=== PATIENT | female | born 1955 | race Caucasian/White ===

== ENCOUNTER 2016-08-10 15:25 | Emergency (ER) | payer OTHER ==
[2016-08-10 15:40] VITALS: BP 121/86; RESP 20; TEMP 97
[2016-08-10] MEDS ORDERED: IPRATROPIUM-ALBUTEROL 3 ML NEB INHALATION STA (16:21)
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
[2016-08-10 16:54] VITALS: PULSE 88
[2016-08-10] MEDS ORDERED: HYDROcodone/APAP 10-325MG 1 EACH TAB PO ONE (17:08)
--- NOTE | 2016-08-10 17:25 | XR ---
EXAMINATION TYPE: XR chest 2V DATE OF EXAM: 08/10/2016 5:17 PM COMPARISON: 04/06/2015 HISTORY: Short of breath and cough TECHNIQUE: Frontal and lateral views of the chest are obtained. FINDINGS: Heart and mediastinum are normal. Lungs are clear of consolidation. There are no hilar mas ses. There is no pleural effusion. There is possible faint 5 mm nodule over the right upper lobe on t he frontal view. Bony thorax is intact. IMPRESSION: Possible small right upper lobe nodule without change compared to last exam. Normal hear t.
--- NOTE | 2016-08-10 17:26 | XR ---
EXAMINATION TYPE: XR Hip Complete LT DATE OF EXAM: 08/10/2016 5:17 PM COMPARISON: 12/30/2013 HISTORY: Hip pain TECHNIQUE: 2 views FINDINGS: There is a left hip prosthesis. Components appear in anatomic position. I see no fracture. IMPRESSION: Left hip prosthesis without evidence of a fracture. Prosthesis is new compared to old geetaa cecilio
== END 2016-08-10 17:56 | disposition home or self-care (01) ==
LOC: EC 15:25
DX: J44.0 Chronic obstructive pulmonary disease with (acute) lower respiratory infection (principal); J20.9 Acute bronchitis, unspecified; M25.552 Pain in left hip; K21.9 Gastro-esophageal reflux disease without esophagitis; E78.5 Hyperlipidemia, unspecified; I10 Essential (primary) hypertension; E03.9 Hypothyroidism, unspecified; F41.9 Anxiety disorder, unspecified; F31.9 Bipolar disorder, unspecified; F17.200 Nicotine dependence, unspecified, uncomplicated; Z79.82 Long term (current) use of aspirin; Z79.52 Long term (current) use of systemic steroids; Z79.899 Other long term (current) drug therapy; Z88.5 Allergy status to narcotic agent; Z88.0 Allergy status to penicillin; Z88.7 Allergy status to serum and vaccine; Z88.8 Allergy status to other drugs, medicaments and biological substances
CPT/HCPCS: 71020; 73502; 94640; 99283

== ENCOUNTER → 2016-08-21 | Outpatient (CLI) | payer OTHER ==
--- NOTE | 2016-08-22 14:21 | PE ---
EXAMINATION TYPE: PET CT fusion skull to thigh DATE OF EXAM: 08/21/2016 2:22 PM COMPARISON: CT chest 06/03/2015, CT chest 05/23/2014. Prior PET/CT: None at this location. HISTORY: Solitary pulmonary nodule TECHNIQUE: Following the intravenous administration of 11.16 mCi of F-18 FDG, whole body images are performed from the skull base to the midthigh. Images are reviewed on the computer in the coronal, a xial, and sagittal planes. Reconstructed rotating images are created on independent workstation and reviewed on the computer. A localization and attenuation correction CT is performed in conjunction with the PET scan. DLP: 296.71 mGycm SCAN: Initial Scan Blood glucose: 95 mg/dL Average Mediastinum SUV: 1.7 Average Liver SUV: 2.4 FINDINGS: NECK: No abnormal uptake THORAX: No suspicious uptake. No uptake within the mediastinum is evident. The mid right lung nodule has an SUV value of 0.6 compatible with a benign process. Additional more medial lung nodule likewise has an SUV value of 0.6 and is stable from prior exams. ABDOMEN: No abnormal uptake PELVIS: No abnormal uptake. OSSEOUS STRUCTURES: There is limitation in the lower pelvis due to bilateral hip prostheses. Postsurg ical uptake may be adjacent to the left hip prosthesis. Loosening is not excluded. LOCALIZATION CT: There is a 1.0 cm nodule within the right perihilar region. Series 3 image 79, PET i mage 79. Compression deformity of L2 appears to be chronic. COMPARISON: Solitary pulmonary nodule in the right midlung is present since May 2014 unchanged. IMPRESSION: 1. Stable pulmonary nodules without abnormal uptake on PET scan imaging. These have stable over the c ourse of 2 years.
== END | disposition home or self-care (01) ==
LOC: RADPETMAIN 11:38
PROVIDERS: ATTEND Internal Medicine Sleep Medicine
DX: R91.8 Other nonspecific abnormal finding of lung field (principal)
CPT/HCPCS: 78815; A9552

== ENCOUNTER 2016-10-05 10:54 | Emergency (ER) | payer OTHER ==
[2016-10-05 11:05] VITALS: BP 124/62; PULSE 93; RESP 16; TEMP 98
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
== END 2016-10-05 11:53 | disposition home or self-care (01) ==
LOC: EC 10:54
DX: Z76.0 Encounter for issue of repeat prescription (principal); I10 Essential (primary) hypertension; J44.9 Chronic obstructive pulmonary disease, unspecified; F41.9 Anxiety disorder, unspecified; E03.9 Hypothyroidism, unspecified; F31.9 Bipolar disorder, unspecified; F17.200 Nicotine dependence, unspecified, uncomplicated; Z88.5 Allergy status to narcotic agent; Z88.7 Allergy status to serum and vaccine; Z88.0 Allergy status to penicillin; Z91.048 Other nonmedicinal substance allergy status; Z79.51 Long term (current) use of inhaled steroids; Z79.82 Long term (current) use of aspirin; Z79.899 Other long term (current) drug therapy
CPT/HCPCS: 99281

== ENCOUNTER 2016-11-26 01:57 | Emergency (ER) | payer OTHER ==
[2016-11-26] MEDS ORDERED: HYDROcodone/APAP 5-325MG 1 EACH TAB PO STA (02:16)
[2016-11-26] MEDS ORDERED: KETOROLAC 60 MG/2 ML VIAL IM STA (02:16)
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
[2016-11-26 03:07] VITALS: BP 126/76; PULSE 85; RESP 16; TEMP 97.8
--- NOTE | 2016-11-26 03:14 | XR ---
EXAM: XR Chest, 1 View CLINICAL HISTORY: Reason: Difficulty breathing TECHNIQUE: Frontal view of the chest. COMPARISON: 08/10/16 FINDINGS: Lungs: There is again a subtle nodule seen overlying the upper to mid right lung field on the frontal view, that appears unchanged and which I measure at 8mm on both the current and previous radiographs. No new or enlarging infiltrate. Pleural space: Unremarkable. No pneumothorax. Heart: Unremarkable. No cardiomegaly. Mediastinum: Unremarkable. Bones/joints: Degenerative changes without acute displaced fracture. IMPRESSION: 1. No new acute intrathoracic abnormality is seen. 2. Stable appearance of indeterminate subcentimeter right lung nodule, as above.
== END 2016-11-26 03:07 | disposition home or self-care (01) ==
LOC: EC 01:57
DX: S20.219A Contusion of unspecified front wall of thorax, initial encounter (principal); I10 Essential (primary) hypertension; G89.29 Other chronic pain; E03.9 Hypothyroidism, unspecified; J44.9 Chronic obstructive pulmonary disease, unspecified; F31.9 Bipolar disorder, unspecified; F41.9 Anxiety disorder, unspecified; F17.200 Nicotine dependence, unspecified, uncomplicated; Z79.51 Long term (current) use of inhaled steroids; Z79.82 Long term (current) use of aspirin; Z79.899 Other long term (current) drug therapy; Z88.0 Allergy status to penicillin; Z88.5 Allergy status to narcotic agent; Z88.7 Allergy status to serum and vaccine; Z91.09 Other allergy status, other than to drugs and biological substances; X50.1XXA Overexertion from prolonged static or awkward postures, initial encounter; Y92.810 Car as the place of occurrence of the external cause; Y93.89 Activity, other specified
CPT/HCPCS: 99284; 96372; 71020; J1885

== ENCOUNTER → 2017-03-09 | Outpatient (CLI) | payer OTHER ==
[2017-03-09 17:46] LABS: Anisocytosis Slight; CH 31.8; CHCM 34.5; HCT 41.2 % (34.0-46.0); HDW 2.29; HGB 13.8 gm/dL (11.4-16.0); MCHC 33.5 g/dL (31.0-37.0); MCV 92.7 fL (80.0-100.0); Mean Platelet Volume 10.3; RBC 4.44 m/uL (3.80-5.40); WBC 9.3 k/uL (3.8-10.6)
[2017-03-09 17:56] LABS: INR 1.1 (<1.2); Partial Thromboplastin Time 26.3 sec (22.0-30.0); Prothrombin Time 10.6 sec (9.0-12.0)
[2017-03-09 18:08] LABS: ALT 36 U/L (9-52); AST 27 U/L (14-36); Alkaline Phosphatase 86 U/L (38-126); Anion Gap 10 mmol/L; Blood Urea Nitrogen 14 mg/dL (7-17); Calcium 9.3 mg/dL (8.4-10.2); Carbon Dioxide 25 mmol/L (22-30); Chloride 101 mmol/L (98-107); Glucose 97 mg/dL (74-99); Non-African American GFR(MDRD) 51 (>60 ml/min/1.73 sqM); Potassium 3.9 mmol/L (3.5-5.1); Sodium 136 mmol/L (137-145); Total Bilirubin 0.3 mg/dL (0.2-1.3); Total Protein 7.7 g/dL (6.3-8.2)
--- NOTE | 2017-03-09 22:23 | CT ---
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 TECHNIQUE: Contiguous axial scanning of the abdomen and pelvis following administration of 80 mL Visi paque 320 IV contrast. Delayed images through the kidneys and coronal/sagittal reconstructions perfo rmed. CT DLP: 1025.60 mGycm Automated exposure control for dose reduction was used. FINDINGS: The heart is normal size without pericardial effusion. Lung bases clear without pleural effusion. There is a tiny hiatal hernia. No focal liver lesion identified. No biliary ductal dilatation. Gallbladder, adrenal glands, spleen, and pancreas appear within normal limits. There are some cortical defects along the lower pole of the right kidney suggesting prior vascular or infectious insult. Approximately 4 subcentimeter hypodensities within the left kidney too small for accurate CT characterization, most likely tiny cysts. No dilated small bowel, free fluid, or free air. No mesenteric or retroperitoneal lymphadenopathy briana ntified. Normal appendix. Oral contrast has progressed to the hepatic flexure. There is mild to moderate overa ll stool burden without pericolonic inflammatory change. Bladder is urine distended. Limited assessment of the pelvis due to extensive metal hardware artifact relating to the patient's bilateral total hip arthroplasties. Allowing for this limitation, no defin ite pelvic lymphadenopathy is identified. Again, assessment is limited. Unable to visualize the uteru s or ovaries. Bones: Degenerative changes in the lumbar spine with grade 1 retrolisthesis at L2-L3 and chronic supe rior endplate compression deformity of L2 vertebral body. No osseous destructive process. IMPRESSION: 1. PROMINENT METAL HARDWARE ARTIFACT FROM THE PATIENT'S TOTAL HIP REPLACEMENTS LIMITING VISUALIZATION OF THE PELVIS. UTERUS AND OVARIES COULD NOT BE VISUALIZED AND MAY BE SURGICALLY ABSENT. 2. NO SUSPICIOUS LYMPHADENOPATHY OR MASS IDENTIFIED TO SUGGEST METASTATIC DISEASE.
--- NOTE | 2017-03-10 08:58 | XR ---
EXAMINATION TYPE: XR chest 2V DATE OF EXAM: 03/09/2017 COMPARISON: 12/09/2016 TECHNIQUE: PA and lateral views submitted. HISTORY: Neoplasm FINDINGS: There is a 1 cm nodule in the right upper lobe. Hyperinflation suggests COPD. Degenerative change of the spine noted. No interstitial edema. Nodularity in the right lower lobe not excluded. Arthropathy of the shoulders. IMPRESSION: 1. Findings suggest COPD and right upper lobe pulmonary nodule. Nodularity in the right lower lobe no t excluded. 2. No acute infiltrate.
== END | disposition home or self-care (01) ==
LOC: RADCTMAIN 17:14
PROVIDERS: ATTEND Obstetrics & Gynecology Gynecology
DX: C51.9 Malignant neoplasm of vulva, unspecified (principal); E03.9 Hypothyroidism, unspecified; Z88.0 Allergy status to penicillin
CPT/HCPCS: 84439; 80053; 84443; 85027; 85610; 85730; 71020; 74177; 36415; Q9967

== ENCOUNTER 2017-07-16 15:12 | Emergency (ER) | payer OTHER ==
[2017-07-16 15:42] VITALS: BP 115/59; PULSE 83; RESP 18; TEMP 100
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
--- NOTE | 2017-07-16 17:18 | XR ---
EXAMINATION TYPE: XR shoulder complete LT, XR humerus LT DATE OF EXAM: 07/16/2017 CLINICAL HISTORY: Left shoulder and humerus pain after fall injury 10 days ago. TECHNIQUE: Three views of the left shoulder are obtained. 2 views left humerus are acquired. COMPARISON: None. FINDINGS: Osseous structures are demineralized. There is no acute fracture/dislocation evident in th e left shoulder. The acromioclavicular joint appears within normal limits. There is joint space los s with spurring from inferior medial humeral head at the glenohumeral joint. The visualized ribs are intact and unremarkable. Images of left humerus show no acute fracture or dislocation. Visualized portion of left elbow joint is within normal limits. Overlying soft tissue is unremarkable. IMPRESSION: There is no acute fracture or dislocation in the left humerus or shoulder.
[2017-07-16] MEDS ORDERED: KETOROLAC 30 MG/ML 1 ML VIAL IM STA (17:27)
== END 2017-07-16 17:48 | disposition home or self-care (01) ==
LOC: EC 15:12
DX: M25.512 Pain in left shoulder (principal); I10 Essential (primary) hypertension; E03.9 Hypothyroidism, unspecified; F31.9 Bipolar disorder, unspecified; F41.9 Anxiety disorder, unspecified; Z96.651 Presence of right artificial knee joint; Z96.641 Presence of right artificial hip joint; F17.200 Nicotine dependence, unspecified, uncomplicated; Z88.5 Allergy status to narcotic agent; Z91.048 Other nonmedicinal substance allergy status; Z88.0 Allergy status to penicillin; Z88.7 Allergy status to serum and vaccine; Z88.8 Allergy status to other drugs, medicaments and biological substances; Z79.82 Long term (current) use of aspirin; Z79.899 Other long term (current) drug therapy
CPT/HCPCS: 99283; 96372; 73030; 73060; J1885

== ENCOUNTER 2017-09-16 03:27 | Inpatient (IN) | payer MEDICAID, OTHER ==
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
[2017-09-16] MEDS ORDERED: FLUCONAZOLE 150 MG TAB PO STA (03:57)
[2017-09-16 04:08] LABS: Amphetamine Screen,Urine Not Detected (NotDetected); Barbiturate Screen,Urine Not Detected (NotDetected); Benzodiazepines Screen,Urine Not Detected (NotDetected); Cocaine Screen,Urine Detected (NotDetected); Methadone Screen, Urine Not Detected (NotDetected); Opiate Screen,Urine Not Detected (NotDetected); Oxycodone Screen, Urine Not Detected (NotDetected); Phencyclidine Screen,Urine Not Detected (NotDetected); Tricyclic Antidepressant,Urine Not Detected (NotDetected); Urn Cannabinoid Scrn Not Detected (NotDetected)
[2017-09-16] MEDS ORDERED: ALPRAZolam 1 MG TAB PO STA (04:44)
[2017-09-16] MEDS ORDERED: ACETAMINOPHEN TAB 325 MG TAB PO PRN (05:29)
[2017-09-16] MEDS ORDERED: MAG HYDROX/AL HYDROX/SIMETH 30 ML CUP PO PRN (05:29)
[2017-09-16] MEDS ORDERED: MAGNESIUM HYDROXIDE 2,400 MG/10 ML CUP PO PRN (05:29)
[2017-09-16] MEDS ORDERED: ALBUTEROL NEBULIZED 2.5 MG/3 ML INHALATION PRN (05:33)
[2017-09-16] MEDS ORDERED: LEVOTHYROXINE 75 MCG TAB PO SCH (06:30)
[2017-09-16 07:16] VITALS: BMI 28.0
[2017-09-16] MEDS: amLODIPine 5 MG TAB PO SCH (08:42)
[2017-09-16] MEDS: NICOTINE 14MG/24HR PATCH TRANSDERM SCH (08:42)
[2017-09-16] MEDS ORDERED: IBUPROFEN 800 MG TAB PO PRN (10:27)
[2017-09-16 10:42] LABS: Basophils # (A) 0.1 k/uL (0-0.2); Basophils % (A) 1 %; Eosinophils # (A) 0.2 k/uL (0-0.7); Eosinophils % (A) 3 %; HCT 37.5 % (34.0-46.0); HGB 12.6 gm/dL (11.4-16.0); Lymphocytes % (A) 29 %; MCHC 33.6 g/dL (31.0-37.0); MCV 92.3 fL (80.0-100.0); Mean Platelet Volume 9.3; Monocytes # (A) 0.4 k/uL (0-1.0); Monocytes % (A) 6 %; Neutrophils # (A) 4.1 k/uL (1.3-7.7); Neutrophils % (A) 59 %; Platelet Count 228 k/uL (150-450); RBC 4.06 m/uL (3.80-5.40); RDW 14.4 % (11.5-15.5); WBC 7.1 k/uL (3.8-10.6)
[2017-09-16] MEDS: PANTOPRAZOLE 40 MG TABLET PO SCH (11:03)
[2017-09-16] MEDS: ASPIRIN 81 MG PO SCH (11:03)
[2017-09-16 11:13] LABS: Albumin 3.8 g/dL (3.5-5.0); Calcium 9.5 mg/dL (8.4-10.2); Potassium 3.4 mmol/L (3.5-5.1); Total Bilirubin 0.2 mg/dL (0.2-1.3); Total Protein 6.6 g/dL (6.3-8.2)
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
[2017-09-16] MEDS: lamoTRIgine 100 MG TAB PO SCH (12:41)
[2017-09-16] MEDS ORDERED: POTASSIUM CHLORIDE ER 20 MEQ TAB.ER PO STA (13:47)
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
[2017-09-16 14:29] LABS: Appearance,Urine Clear (Clear); Bilirubin,Urine Negative (Negative); Blood,Urine Negative (Negative); Color,Urine Light Yellow; Glucose,Urine (UA) Negative (Negative); Ketones,Urine Negative (Negative); Leukocyte Esterase,Urine Negative (Negative); Nitrite,Urine Negative (Negative); PH, Urine 6.5 (5.0-8.0); Protein,Urine Negative (Negative); Specific Gravity,Urine 1.007 (1.001-1.035); Urobilinogen,Urine <2.0 mg/dL (<2.0)
[2017-09-16 17:49] LABS: Hemoglobin A1C 5.2 % (4.0-6.0)
[2017-09-16] MEDS: ALBUTEROL INHALER 60 PUFF/8 GM INHALER INHALATION PRN (18:04)
[2017-09-17] MEDS: LEVOTHYROXINE 100 MCG TAB PO SCH (05:45)
[2017-09-17] MEDS: LEVOTHYROXINE 75 MCG TAB PO SCH (05:45)
[2017-09-17 07:07] VITALS: RESP 16
[2017-09-17] MEDS ORDERED: PANTOPRAZOLE 40 MG TABLET PO SCH (07:30)
[2017-09-17] MEDS ORDERED: NON-FORMULARY DRUG (Aclidinium Bromide [Tudorza Pressair] 1 PUFF) PO SCH (08:00)
[2017-09-17] MEDS: PANTOPRAZOLE 40 MG TABLET PO SCH (08:28)
[2017-09-17] MEDS: amLODIPine 5 MG TAB PO SCH (08:29)
[2017-09-17] MEDS: HYDROCHLOROTHIAZIDE 25 MG TAB PO SCH (08:29)
[2017-09-17] MEDS: ASPIRIN 81 MG PO SCH (08:29)
[2017-09-17] MEDS: lamoTRIgine 100 MG TAB PO SCH (08:31)
[2017-09-17] MEDS: LORATADINE 10 MG TAB PO SCH (08:31)
[2017-09-17] MEDS: NICOTINE 14MG/24HR PATCH TRANSDERM SCH (08:34)
[2017-09-17] MEDS: SYMBICORT 80-4.5 MCG INHALER INHALATION SCH ×2 (09:09→20:48)
[2017-09-17 09:57] LABS: Anion Gap 12 mmol/L; Blood Urea Nitrogen 13 mg/dL (7-17); Calcium 9.1 mg/dL (8.4-10.2); Carbon Dioxide 26 mmol/L (22-30); Chloride 105 mmol/L (98-107); Glucose 77 mg/dL (74-99); Potassium 3.8 mmol/L (3.5-5.1); Sodium 143 mmol/L (137-145)
[2017-09-17 10:37] LABS: Cholesterol 184 mg/dL (<200); HDL Cholesterol 59 mg/dL (40-60); LDL Cholesterol,Calculated 91 mg/dL (0-99); Triglycerides 171 mg/dL (<150)
[2017-09-17] MEDS: ALBUTEROL INHALER 60 PUFF/8 GM INHALER INHALATION PRN ×2 (16:47→20:47)
--- NOTE | 2017-09-17 21:22 | P.PN ---
Progress Note - Text Progress Note Date: 09/17/17 Patient was seen today. she complains of feeling anxious and states she takes xanax which has helped her to sleep better. She says her xanax has been tapered off and she is no longer taking it. She claims she stays awake most of the night and sleeps intermittetently during the day. She says she does not go to groups as she does not like being around people. She says she stays to herself inside her room. She reports feeling somewhat better today. She denies current symptoms of depression, lennox and psychosis. She reports good appetite. Mental status exam Patient is 62 year old woman. She is pleasant and cooperative. She appears in fair grooming and hygine. She maintains good eye contact. Her speech and thought process are goal directed. Her mood is reported as better and affect appropriate. No auditory or visual halluciantions. She denies paranoia. She does not appear delusional. She is alert and oriented to time place and person. She denies current suicidal or homicidla ideations. Her insight and judgement are fair and improving. Assessment She complains of not being able to sleep at night and also reports feeling anxious Plan Continue her current medications Will start her on remeron 7.5mg po qhs to help her to sleep. Monitor for symptoms
[2017-09-17] MEDS: MIRTAZAPINE 15 MG TAB PO SCH (22:24)
[2017-09-18] MEDS: LEVOTHYROXINE 75 MCG TAB PO SCH (06:08)
[2017-09-18] MEDS: LEVOTHYROXINE 100 MCG TAB PO SCH (06:08)
[2017-09-18] MEDS: ASPIRIN 81 MG PO SCH (08:33)
[2017-09-18] MEDS: lamoTRIgine 100 MG TAB PO SCH (08:33)
[2017-09-18] MEDS: PANTOPRAZOLE 40 MG TABLET PO SCH (08:33)
[2017-09-18] MEDS: NICOTINE 14MG/24HR PATCH TRANSDERM SCH (08:34)
[2017-09-18] MEDS: HYDROCHLOROTHIAZIDE 25 MG TAB PO SCH (08:34)
[2017-09-18] MEDS: LORATADINE 10 MG TAB PO SCH (08:35)
[2017-09-18] MEDS: ALBUTEROL INHALER 60 PUFF/8 GM INHALER INHALATION PRN ×4 (09:00→21:07)
[2017-09-18] MEDS ORDERED: ERGOCALCIFEROL 50,000 UNIT CAP PO SCH (09:00)
[2017-09-18] MEDS: SYMBICORT 80-4.5 MCG INHALER INHALATION SCH ×2 (09:00→21:22)
[2017-09-18] MEDS: amLODIPine 5 MG TAB PO SCH (11:38)
--- NOTE | 2017-09-18 20:23 | P.PN ---
Progress Note - Text Progress Note Date: 09/18/17 Patient was seen today. She reports doing well. She states she doesnt go to groups she states she is not a people person. she however states she socializes and walks in the hallways. She reports feeling guilty about relapsing on cocaine. She says she felt depressed and wanted to numb her brain and therfore snorted cocaine a little bit. She says she regretts use of cocaine. she asked when she could be discharged. She denies current symptoms of depression, lennox and psychosis Menatal status exam Patient is 33 year old woman. She is obese. She appears in fair grooming and hygiene. She is dressed casually. She maintains good eye contact. Her speech and thought process are goal directed. Her mood is reported as good affect constricted. She denies auditory and hallucinations. She denies paranoia. She denies current suicidal or homicidal ideations. She is alert and oriented to time place and person. Assessment She reports improvement of her symptoms with her medications Plan: Continue Abilify 10 mg twice a day Monitor for symptoms
[2017-09-18] MEDS: MIRTAZAPINE 15 MG TAB PO SCH (21:00)
[2017-09-18] MEDS ORDERED: MELATONIN 3 MG TABLET PO PRN (21:13)
[2017-09-18] MEDS: NON-FORMULARY DRUG (Aclidinium Bromide [Tudorza Pressair] 1 PUFF) PO SCH (21:22)
[2017-09-19] MEDS: LEVOTHYROXINE 75 MCG TAB PO SCH (05:39)
[2017-09-19] MEDS: LEVOTHYROXINE 100 MCG TAB PO SCH (05:39)
[2017-09-19 05:40] VITALS: TEMP 97.4
[2017-09-19 08:33] VITALS: BP 113/69; PULSE 89
[2017-09-19] MEDS: HYDROCHLOROTHIAZIDE 25 MG TAB PO SCH (08:33)
[2017-09-19] MEDS: lamoTRIgine 100 MG TAB PO SCH (08:35)
[2017-09-19] MEDS: LORATADINE 10 MG TAB PO SCH (08:35)
[2017-09-19] MEDS: amLODIPine 5 MG TAB PO SCH (08:35)
[2017-09-19] MEDS: PANTOPRAZOLE 40 MG TABLET PO SCH (08:35)
[2017-09-19] MEDS: ASPIRIN 81 MG PO SCH (08:35)
[2017-09-19] MEDS: NICOTINE 14MG/24HR PATCH TRANSDERM SCH (08:35)
[2017-09-19] MEDS: ALBUTEROL INHALER 60 PUFF/8 GM INHALER INHALATION PRN (09:07)
[2017-09-19] MEDS: SYMBICORT 80-4.5 MCG INHALER INHALATION SCH (09:07)
[2017-09-19] MEDS: NON-FORMULARY DRUG (Aclidinium Bromide [Tudorza Pressair] 1 PUFF) PO SCH (09:07)
--- NOTE | 2017-09-19 09:32 | P.DS ---
Providers Date of admission: 09/16/17 05:26 Expected date of discharge: 09/19/17 Attending physician: Jaxon Fu Consults: 09/16/17 05:29 Consult Physician Routine Consulting Provider: Lang Cuello Consult Reason/Comments: medical management Do you want consulting provider notified?: Yes, Notify in am Primary care physician: Lang [facility] Course: Patient had her psychiatric evaluation, physical examination and psychosocial evaluation. After psychiatric evaluation it was agreed to continue her on Lamictal 200 mg a day, Abilify 20 mg a day and to discontinue Xanax 1 mg a day. She wanted to get her Xanax increased but she was counseled and eventually it was agreed to stop it. She attended groups, interacted with peers and staff etc. She continued to be free of suicide thoughts. Since her TSH was high her Synthroid was increased from 150 mcg to 175 mcg a day. She was started on Remeron 7.5 mg at bedtime to help her sleep at night by the weekend doctor. But this will not be continued on discharge since Remeron is an antidepressant and it can interfere with the treatment of bipolar disorder. Since patient continues to deny suicidal thoughts and wants to go home it was agreed to discharge her. Condition on discharge: This is a white ambulatory female with good hygiene. She is polite friendly and cooperative she does not show any psychomotor agitation or retardation. Her speech is spontaneous relevant and goal- directed. Her mood is cheerful and affect is appropriate. She continues to deny suicidal and homicidal thoughts, hallucinations and delusional thinking. She is well oriented with good memory concentration etc. Her insight and judgment seem to have improved. 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 ALLERGY to codeine, Benadryl, Robitussin, may kill, penicillins, pneumococcal vaccine, Flonase and is not ALLERGIC to aspirin. COPD. Hypertension. GERD. Hypothyroidism. Patient was advised and agreed to take her medications as prescribed, not to drink alcohol or use drugs, not to drive or operate machinery if she feels sleepy, to learn better coping skills through therapy, to talk to her psychiatrist or therapist if she gets suicidal thoughts and to come to the nearest ER if she cannot get hold of psychiatrist or therapist. Plan - Discharge Summary Discharge Rx Participant: No New Discharge Prescriptions: New ARIPiprazole [Abilify] 20 mg PO DAILY tab lamoTRIgine [LaMICtal] 200 mg PO DAILY tab Levothyroxine Sodium [Synthroid] 75 mcg PO DAILY@30 30 Days #30 tab Levothyroxine Sodium [Synthroid] 100 mcg PO DAILY@0630 30 Days #30 tab Melatonin 3 mg PO HS PRN tablet PRN Reason: Insomnia Pantoprazole [Protonix] 40 mg PO AC-BRKFST 30 Days #30 tablet. Continue Albuterol Inhaler [Ventolin Hfa Inhaler] 2 puff INHALATION RT-Q4H PRN #0 puff PRN Reason: Wheezing Aspirin 81 mg PO DAILY amLODIPine BESYLATE [Norvasc] 5 mg PO DAILY Ergocalciferol (Vitamin D2) [Vitamin D2] 50,000 unit PO PEARSON Loratadine [Claritin] 10 mg PO DAILY Mometasone/Formoterol [Dulera 100 Mcg/5 Mcg Inhaler] 2 puff INHALATION RT- DAILY Aclidinium [place] [Tudorza Pressair] 1 puff PO BID Hydrochlorothiazide 25 mg PO DAILY 30 Days #30 tablet Discontinued Omeprazole [PriLOSEC] 20 mg PO BID capsule. lamoTRIgine 200 mg PO DAILY ARIPiprazole [Abilify] 20 mg PO DAILY Levothyroxine Sodium [Synthroid] 150 mcg PO DAILY ALPRAZolam [Xanax] 1 mg PO DAILY Ibuprofen [Motrin] 800 mg PO TID PRN PRN Reason: Pain Discharge Medication List Albuterol Inhaler [Ventolin Hfa Inhaler] 2 puff INHALATION RT-Q4H PRN #0 puff [Rx] Aspirin 81 mg PO DAILY 02/06/15 [History] amLODIPine BESYLATE [Norvasc] 5 mg PO DAILY 07/28/15 [History] Ergocalciferol (Vitamin D2) [Vitamin D2] 50,000 unit PO PEARSON 07/16/17 [History] Aclidinium [place] [Tudorza Pressair] 1 puff PO BID 09/16/17 [History] Loratadine [Claritin] 10 mg PO DAILY 09/16/17 [History] Mometasone/Formoterol [Dulera 100 Mcg/5 Mcg Inhaler] 2 puff INHALATION RT-DAILY 09/16/17 [History] ARIPiprazole [Abilify] 20 mg PO DAILY tab 09/19/17 [Rx] Hydrochlorothiazide 25 mg PO DAILY 30 Days #30 tablet 09/19/17 [Rx] Levothyroxine Sodium [Synthroid] 75 mcg PO DAILY@30 30 Days #30 tab 09/19/17 [ Rx] Levothyroxine Sodium [Synthroid] 100 mcg PO DAILY@30 30 Days #30 tab 09/19/17 [Rx] Melatonin 3 mg PO HS PRN tablet 09/19/17 [Rx] Pantoprazole [Protonix] 40 mg PO AC-BRKFST 30 Days #30 tablet. 09/19/17 [Rx] lamoTRIgine [LaMICtal] 200 mg PO DAILY tab 09/19/17 [Rx] Follow up Appointment(s)/Referral(s): Lang Cuello MD [Primary Care Provider] - 1-2 days
== END 2017-09-19 10:12 | disposition home or self-care (01) | DRG 885 ==
LOC: EC 03:27 → 3MHU 05:26
PROVIDERS: ADMIT Psychiatry & Neurology Psychiatry; ATTEND Psychiatry & Neurology Psychiatry
DX: F31.9 Bipolar disorder, unspecified (principal); N17.9 Acute kidney failure, unspecified; R45.851 Suicidal ideations; E03.9 Hypothyroidism, unspecified; K21.9 Gastro-esophageal reflux disease without esophagitis; J44.9 Chronic obstructive pulmonary disease, unspecified; E87.6 Hypokalemia; I10 Essential (primary) hypertension; Z96.641 Presence of right artificial hip joint; M54.9 Dorsalgia, unspecified; G89.29 Other chronic pain; E78.5 Hyperlipidemia, unspecified; F17.210 Nicotine dependence, cigarettes, uncomplicated; F60.3 Borderline personality disorder; F60.2 Antisocial personality disorder; J30.2 Other seasonal allergic rhinitis; Z88.5 Allergy status to narcotic agent; Z88.0 Allergy status to penicillin; Z88.7 Allergy status to serum and vaccine; Z88.8 Allergy status to other drugs, medicaments and biological substances; Z79.899 Other long term (current) drug therapy; Z79.82 Long term (current) use of aspirin; Z90.710 Acquired absence of both cervix and uterus; Z81.8 Family history of other mental and behavioral disorders; Z82.3 Family history of stroke; Z80.1 Family history of malignant neoplasm of trachea, bronchus and lung; Z91.5 Personal history of self-harm; Z71.6 Tobacco abuse counseling
CPT/HCPCS: 80048; 80053; 80061; 80306; 81003; 82075; 83036; 84443; 85025; 94640; 99285

== ENCOUNTER 2022-11-21 11:33 | Emergency (ER) | payer MEDICAID ==
[2022-11-21] MEDS ORDERED: IPRATROPIUM-ALBUTEROL 3 ML NEB INHALATION STA (11:56)
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
[2022-11-21 12:19] LABS: Appearance,Urine Cloudy (Clear); Bacteria,Urine Rare /hpf; Bilirubin,Urine Negative (Negative); Blood,Urine Negative (Negative); Color,Urine Yellow; Glucose,Urine (UA) Negative (Negative); Hyaline Casts,Urine 3 /lpf (0-2); Ketones,Urine Negative (Negative); Leukocyte Esterase,Urine Negative (Negative); Mucus,Urine Rare /hpf; Nitrite,Urine Negative (Negative); Protein,Urine Negative (Negative); RBC,Urine 2 /hpf (0-5); Squamous Epithelial Cell,Urine 6 /hpf (0-4); Urobilinogen,Urine <2.0 mg/dL (<2.0); WBC,Urine 3 /hpf (0-5)
--- NOTE | 2022-11-21 12:20 | XR ---
EXAMINATION TYPE: XR chest 2V DATE OF EXAM: 11/21/2022 COMPARISON: 03/09/2017 HISTORY: Shortness of breath TECHNIQUE: Frontal and lateral views of the chest are obtained. FINDINGS: Scattered senescent parenchymal changes noted. Hyperinflation compatible with COPD. No evidence for infiltrate. No evidence for atelectasis. Right upper lobe pulmonary nodule was seen p reviously Heart size is stable. Mediastinal structures are stable and grossly unremarkable. No evidence for hilar prominence. Degenerative changes dorsal spine. IMPRESSION: 1. No evidence for acute pulmonary disease.
--- NOTE | 2022-11-21 12:21 | XR ---
EXAMINATION TYPE: XR Hip Complete LT DATE OF EXAM: 11/21/2022 CLINICAL HISTORY: pain TECHNIQUE: AP and frogleg views of the left hip are obtained. COMPARISON: None. FINDINGS: There is no acute fracture/dislocation evident. Total left hip arthroplasty is noted to be in place with femoral and acetabular components well seated. The overlying soft tissue appears unrem arkable. IMPRESSION: 1. There is no acute fracture or dislocation.ICD 10 NO FRACTURE, INITIAL EVALUATION
--- NOTE | 2022-11-21 12:22 | XR ---
EXAMINATION TYPE: XR finger RT DATE OF EXAM: 11/21/2022 CLINICAL HISTORY: pain TECHNIQUE: 3 views of the right first digit are submitted. COMPARISON: None FINDINGS: No displaced fracture is seen with certainty. Severe degenerative narrowing first carpometa carpal joint space with bony fragmentation and collapse noted. Correlate for soft tissue injury. IMPRESSION: No acute displaced fracture or dislocation.
[2022-11-21] MEDS ORDERED: traMADol 50 MG STARTER PACK 3 TAB BTL PO STA (12:57)
[2022-11-21] MEDS ORDERED: IBUPROFEN 600 MG STARTER PACK 4 TAB BTL PO STA (12:57)
[2022-11-21 13:09] VITALS: BP 122/86; PULSE 76; RESP 14; TEMP 97.9
== END 2022-11-21 13:09 | disposition home or self-care (01) ==
LOC: EC 11:33
DX: J44.9 Chronic obstructive pulmonary disease, unspecified (principal); M79.644 Pain in right finger(s); M25.552 Pain in left hip; R10.2 Pelvic and perineal pain; K21.9 Gastro-esophageal reflux disease without esophagitis; E78.5 Hyperlipidemia, unspecified; I10 Essential (primary) hypertension; F41.9 Anxiety disorder, unspecified; F31.9 Bipolar disorder, unspecified; F17.200 Nicotine dependence, unspecified, uncomplicated; Z88.5 Allergy status to narcotic agent; Z88.7 Allergy status to serum and vaccine; Z88.0 Allergy status to penicillin; Z88.8 Allergy status to other drugs, medicaments and biological substances; Z79.82 Long term (current) use of aspirin; Z79.899 Other long term (current) drug therapy
CPT/HCPCS: 71046; 73502; 81001; 94640; 99284

== ENCOUNTER 2022-12-05 11:37 | Emergency (ER) | payer MEDICARE, OTHER ==
[2022-12-05 11:50] VITALS: TEMP 98
--- NOTE | 2022-12-05 13:15 | XR ---
EXAMINATION TYPE: XR chest 2V DATE OF EXAM: 12/05/2022 1:02 PM COMPARISON: Chest radiographs from 11/21/2022 TECHNIQUE: XR chest 2V Frontal and lateral views of the chest. CLINICAL INDICATION:Female, 67 years old with history of difficulty breathing; FINDINGS: Lungs/Pleura: Blunting of the right costophrenic angle. There is no evidence of left pleural effusion , focal consolidation, or pneumothorax. Pulmonary vascularity: Unremarkable. Heart/mediastinum: Cardiomediastinal silhouette is unremarkable. Musculoskeletal: No acute osseous pathology. IMPRESSION: 1. No acute cardiopulmonary disease/process. 2. There may be a trace right pleural effusion..
[2022-12-05 13:21] VITALS: RESP 20
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
[2022-12-05 13:30] LABS: Basophils % (A) 0 %; Eosinophils # (A) 0.2 k/uL (0-0.7); Eosinophils % (A) 2 %; HCT 44.9 % (34.0-46.0); HGB 14.7 gm/dL (11.4-16.0); Lymphocytes # (A) 1.5 k/uL (1.0-4.8); Lymphocytes % (A) 16 %; MCH 30.8 pg (25.0-35.0); MCHC 32.9 g/dL (31.0-37.0); MCV 93.8 fL (80.0-100.0); Monocytes # (A) 0.6 k/uL (0-1.0); Monocytes % (A) 6 %; Neutrophils # (A) 6.8 k/uL (1.3-7.7); Neutrophils % (A) 74 %; Platelet Count 326 k/uL (150-450); RBC 4.78 m/uL (3.80-5.40); RDW 14.2 % (11.5-15.5); WBC 9.1 k/uL (3.8-10.6)
[2022-12-05 13:35] LABS: INR 0.9 (<1.2); Partial Thromboplastin Time 24.6 sec (22.0-30.0); Prothrombin Time 10.1 sec (9.0-12.0)
[2022-12-05 14:12] LABS: ALT 18 U/L (4-34); AST 22 U/L (14-36); African American GFR (CKD) >90 (>60 ml/min/1.73 sqM); Albumin 4.2 g/dL (3.5-5.0); Alkaline Phosphatase 85 U/L (38-126); Anion Gap 10 mmol/L; Blood Urea Nitrogen 15 mg/dL (7-17); Carbon Dioxide 26 mmol/L (22-30); Chloride 100 mmol/L (98-107); Glucose 95 mg/dL (74-99); Non-African American GFR(CKD) 88 (>60 ml/min/1.73 sqM); Potassium 3.8 mmol/L (3.5-5.1); Sodium 136 mmol/L (137-145); Total Bilirubin 0.5 mg/dL (0.2-1.3); Total Protein 7.6 g/dL (6.3-8.2)
[2022-12-05] MEDS ORDERED: methylPREDNISolone SOD SUCCI 125 MG/2 ML VIAL IV STA (14:33)
[2022-12-05] MEDS ORDERED: IPRATROPIUM-ALBUTEROL 3 ML NEB INHALATION STA (14:33)
[2022-12-05] MEDS ORDERED: cefTRIAXone IN SWFI 1,000 MG/10 ML SYRINGE IVP STA (14:55)
[2022-12-05 15:10] VITALS: PULSE 68
[2022-12-05 15:20] VITALS: BP 144/101
== END 2022-12-05 15:29 | disposition home or self-care (01) ==
LOC: EC 11:37
DX: J44.1 Chronic obstructive pulmonary disease with (acute) exacerbation (principal); R00.1 Bradycardia, unspecified; J40 Bronchitis, not specified as acute or chronic; I10 Essential (primary) hypertension; F41.9 Anxiety disorder, unspecified; F31.9 Bipolar disorder, unspecified; F17.200 Nicotine dependence, unspecified, uncomplicated; Z79.899 Other long term (current) drug therapy; Z79.82 Long term (current) use of aspirin; Z88.8 Allergy status to other drugs, medicaments and biological substances; Z88.0 Allergy status to penicillin; Z88.7 Allergy status to serum and vaccine; Z20.822 Contact with and (suspected) exposure to COVID-19
CPT/HCPCS: 36415; 94640; 93005; 83880; 80053; 83605; 84484; 85025; 85610; 85730; 87636; 71046; 99285; 96374; 96375; J2930; J0696

== ENCOUNTER → 2025-01-11 | Outpatient (CLI) | payer MEDICARE, OTHER ==
--- NOTE | 2025-01-11 18:44 | US ---
EXAMINATION TYPE: US groin RT DATE OF EXAM: 01/11/2025 COMPARISON: NONE CLINICAL INDICATION: Female, 69 years old with history of R59.0 LOCALIZED ENLARGED LYMPH NODES; vulve ctomy with right side lymph node resection in 2017, pain at the right groin for 1 year. No palpable. TECHNIQUE: several begum scale and color images obtained of the right groin at patients area of pain. FINDINGS AND IMPRESSION: No lymph nodes or evidence of hernia at patients area of concern in the right groin region. Irregular surface contour of the right ilium superior to artifical right hip. This suggests rectus fe katelynn tendinopathy at its origin. If there are localizing symptoms, dedicated MSK ultrasound at a [facility] which perform this type of examination may be considered. [facility], , 01/11/2025 6:41 PM
== END | disposition home or self-care (01) ==
LOC: RADUSWWP 12:54
PROVIDERS: ATTEND Family Medicine
DX: R59.0 Localized enlarged lymph nodes (principal)